=== PATIENT | male | born 1985 | race African-American/Black ===

== ENCOUNTER 2022-10-08 21:46 | Emergency (ER) | payer SELFPAY ==
[2022-10-08 22:22] VITALS: BP 154/103; PULSE 105; RESP 16; TEMP 37.9; O2SAT 98
--- NOTE | 2022-10-09 00:26 | PC.NURSE ---
pt seen ambulating out of building. pt called after while passing in front of intake desk, but did not respond.
== END 2022-10-09 00:26 | disposition left against medical advice (07) ==
LOC: ANHED 10-09 00:36
DX: R50.9 Fever, unspecified (principal)
CPT/HCPCS: 99199